=== PATIENT | female | born 1985 | race Two or more races ===

== ENCOUNTER → 2024-11-22 | Outpatient (CLI) | payer MEDICAID, SELFPAY ==
--- NOTE | 2024-11-22 14:06 | XR_ITS ---
Examination: PA lateral chest 2 views TECHNIQUE: Upright PA lateral chest 2 views Exam date and time: November 22, 2024 1420 hours INDICATIONS: Coughing with chest pain beginning one week ago. FINDINGS: Suspicious for early pneumonia left base Normal heart size Right lung is clear IMPRESSION: Early pneumonia left base
== END | disposition home or self-care (01) ==
PROVIDERS: PCP Obstetrics & Gynecology; Referring Provider Obstetrics & Gynecology; Visit Provider Obstetrics & Gynecology
DX: J18.9 Pneumonia, unspecified organism (principal)
CPT/HCPCS: 71046

== ENCOUNTER → 2024-12-07 | Outpatient (CLI) | payer MEDICAID, SELFPAY ==
--- NOTE | 2024-12-07 | XR_ITS ---
Examination: PA lateral chest 2 views TECHNIQUE: Upright PA lateral chest 2 views Date and time: December 07, 2024 1124 hours Comparison November 22, 2024 INDICATIONS: Chest pain this week. FINDINGS: Normal heart size Mild accentuation basilar bronchovascular markings No lobar pneumonia or pulmonary edema IMPRESSION: Mild basilar bronchitis pattern
== END | disposition home or self-care (01) ==
LOC: CDIM 10:46
PROVIDERS: PCP Obstetrics & Gynecology; Referring Provider Obstetrics & Gynecology; Visit Provider Obstetrics & Gynecology
DX: R07.89 Other chest pain (principal)
CPT/HCPCS: 71046